=== PATIENT | female | born 1970 | race Caucasian/White ===

== ENCOUNTER 2016-11-18 23:02 | Emergency (ER) | payer OTHER ==
--- NOTE | ~2016-11-18 | CR141 ---
[facility] A Service of [facility] & [facility] RADIOLOGY TEXT RESULTS PATIENT: ROSI BURNS LOCATION: [facility] : 70 UNIT #: [id number] AGE: [address]: Alma Dimas APRN SEX: F ORDER DR: [id number] [facility] [address] [place], [place] [address] [id number] E MR#: [id number] Acc #: [id number] NAME: ROSI BURNS : 1970 SEX: F STUDY DATE/TIME: 11/19/2016 00:08 UNIT: [facility] ROOM: STUDY DESCRIPTION: CR Hand Min 3 Views Lt Attending Physician: Alma Dimas A.P.R.N. Ordering Physician: Ed Doctor [id number] [facility] Primary Care Physician: Sandy Allen M.D. MEDICAL IMAGING REPORT This report is preliminary unless electronic signature is present EXAM Left hand 11/19/2016 00:08 INDICATION Second and third digit pain after smashing in a door tonight. FINDINGS 3 views of the left hand are compared with 06/24/2014. There is a nondisplaced fracture across the tuft of the second distal phalanx. The remainder of the hand is normal. No other fractures are seen. IMPRESSION Nondisplaced fracture of the tuft of the second distal phalanx. Dictated by... Kelechi Garcia Jr., M.D. THIS IS AN ELECTRONICALLY VERIFIED REPORT Kelechi Garcia Jr., M.D. at 11/19/2016 9:13 PM CAMILO/niesha TD: 11/19/2016 09:09 JOB #: [id number] MEDICAL IMAGING REPORT Page 1 of 1 COPY
[~2016-11-18 23:02] MED LIST: ADULT TUSS100 MG/5 M PO; ALBUTEROL17 GM INH; ATIVAN PO; BACTRIM DS TABL1 TAB PO; DOXYCYCLINE HY100 M3 PO; IBUPROFEN PO; LORTAB 7.5-3251 EACH PO; MEDROL PO; STERAPRED5 MG/DOSE1 PO; TESSALON200 MG PO; VICODIN 5/500 T1 TAB PO; VICODIN PO
== END 2016-11-19 05:15 | disposition home or self-care (01) ==
LOC: CED 23:02
DX: S62.661A Nondisplaced fracture of distal phalanx of left index finger, initial encounter for closed fracture (principal); S61.211A Laceration without foreign body of left index finger without damage to nail, initial encounter; F17.210 Nicotine dependence, cigarettes, uncomplicated; Z88.5 Allergy status to narcotic agent; Z88.1 Allergy status to other antibiotic agents; Z88.6 Allergy status to analgesic agent; W23.0XXA Caught, crushed, jammed, or pinched between moving objects, initial encounter; Y92.009 Unspecified place in unspecified non-institutional (private) residence as the place of occurrence of the external cause
CPT/HCPCS: 12001; 73130; 99283

== ENCOUNTER 2016-12-15 17:21 | Emergency (ER) | payer OTHER ==
--- NOTE | ~2016-12-15 | CR2 ---
[facility] A Service of [facility] & [facility] RADIOLOGY TEXT RESULTS PATIENT: ROSI BURNS LOCATION: [facility] : 70 UNIT #: [id number] AGE: [address]: Jordan Zaragoza MD SEX: F ORDER DR: [id number] [facility] [address] [place], [place] [address] [id number] E MR#: [id number] Acc #: [id number] NAME: ROSI BURNS : 1970 SEX: F STUDY DATE/TIME: 12/15/2016 20:33 UNIT: [facility] ROOM: STUDY DESCRIPTION: CR Abdomen Acute Series Attending Physician: Jordan Zaragoza M.D. Ordering Physician: Jordan Zaragoza M.D. Primary Care Physician: Sandy Allen M.D. MEDICAL IMAGING REPORT This report is preliminary unless electronic signature is present EXAM Acute abdominal series. INDICATION Abdominal pain, nausea for the past 3 weeks. PROCEDURE Frontal view chest, supine and upright views of abdomen and pelvis. COMPARISON None. FINDINGS Lungs clear. No free air. Nonobstructive bowel gas pattern. Previous cholecystectomy. IMPRESSION No acute findings. Dictated by... Chaim Link M.D. THIS IS AN ELECTRONICALLY VERIFIED REPORT Chaim Link M.D. at 12/16/2016 3:09 PM JAMES/sam TD: 12/15/2016 22:38 JOB #: [id number] MEDICAL IMAGING REPORT Page 1 of 1 COPY
[2016-12-15 17:57] LABS: BASOPHIL# 0.1 X10e3 (0-0.3); BASOPHIL% 0.9 % (0-2.5); DIFF IND NO; EOSINOPHIL# 0.3 X10e3 (0-0.7); HEMOGLOBIN 13.1 gm/dL (12.0-16.0); LYMPHOCYTE# 2.1 X10e3 (1.0-3.5); LYMPHOCYTE% 35.9 % (17.0-45.0); MEAN CELL VOLUME 94.7 FL (83-96); MEAN CORPUSCULAR HGB CONC 32.7 g/dL (30-36); MEAN PLATELET VOLUME 9.2 FL (6.5-11.5); MONOCYTE# 0.4 X10e3 (0-1.0); MONOCYTE% 7.4 % (3.0-12.0); NEUTROPHIL% 50.8 % (40-75); PLATELET COUNT 196 X10e3 (140-420); RED BLOOD COUNT 4.22 X10e (3.90-5.30); RED CELL DISTRIBUTION WIDTH 14.6 % (11.0-15.5); WHITE BLOOD COUNT 5.9 X10e3 (4.0-10.5)
[2016-12-15 18:05] LABS: URINE SOURCE CLEAN CATCH
[2016-12-15 18:09] LABS: URINE APPEARANCE CLEAR; URINE BILIRUBIN NEG (NEG); URINE BLOOD NEG (NEG); URINE COLOR YELLOW; URINE GLUCOSE NEG (NEG); URINE KETONE NEG (NEG); URINE LEUKOCYTE ESTERASE NEG (NEG); URINE NITRATE NEG (NEG); URINE PROTEIN NEG (NEG); URINE SPECIFIC GRAVITY 1.014 (1.003-1.035)
[2016-12-15 18:13] LABS: CULTURE INDICATED? NO
[2016-12-15 18:20] LABS: ALBUMIN SERUM 3.7 g/dL (3.5-5.0); ALKALINE PHOSPHATASE 141 U/L (32-92); ALT (SGPT) 26 U/L (10-40); AST (SGOT) 29 U/L (10-42); BILIRUBIN,TOTAL 0.7 mg/dL (0.2-2.0); BLOOD UREA NITROGEN 7 mg/dL (9-23); BUN/CREATININE RATIO 8.75; CALCIUM SERUM 8.4 mg/dL (8.4-10.2); CARBON DIOXIDE 30 mmol/L (22-31); CHLORIDE 100 mmol/L (100-111); CREATININE SERUM 0.8 mg/dL (0.6-1.4); GLOM FILT RATE Estimated 88.5 mL/min (>60); GLUCOSE FASTING 93 mg/dL (70-110); LIPASE 12 U/L (22-51); PROTEIN TOTAL SERUM 6.2 g/dL (6.0-8.3); SODIUM 136 mmol/L (135-145)
[2016-12-15 18:21] LABS: BILIRUBIN, DIRECT <0.1 mg/dL (0.0-0.2); BILIRUBIN,INDIRECT 0.6 mg/dL (0.0-0.9)
== END 2016-12-15 21:35 | disposition home or self-care (01) ==
LOC: CED 17:21
DX: R10.84 Generalized abdominal pain (principal); R10.31 Right lower quadrant pain; J45.909 Unspecified asthma, uncomplicated; J44.9 Chronic obstructive pulmonary disease, unspecified; D64.9 Anemia, unspecified; Z98.51 Tubal ligation status; Z90.49 Acquired absence of other specified parts of digestive tract; Z98.890 Other specified postprocedural states; F17.210 Nicotine dependence, cigarettes, uncomplicated
CPT/HCPCS: 36415; 74022; 80048; 80076; 81003; 83690; 85025; 96361; 96374; 96375; 99284; J2270; J2405